=== PATIENT | female | born 1995 | race African-American/Black ===

== ENCOUNTER 2017-05-08 01:43 | Emergency (ER) | payer SELFPAY, OTHER ==
[2017-05-08] MEDS: FAMOTIDINE 20 MG TABLET. PO (02:34)
[2017-05-08] MEDS: DEXAMETHASONE SOD PHOS 4 MG/ML VIAL IM (02:34)
[2017-05-08] MEDS: diphenhydrAMINE HCL 25 MG CAPSULE PO (02:34)
== END 2017-05-08 02:57 | disposition home or self-care (01) ==
LOC: ER 01:43
DX: L50.0 Allergic urticaria (principal); E03.9 Hypothyroidism, unspecified
CPT/HCPCS: 96372; 99283-25; J1100; Q0163

== ENCOUNTER 2017-12-21 12:28 | Emergency (ER) | payer SELFPAY ==
[~2017-12-21] VITALS: Ht 172.7 cm; Wt 72.6 kg
[~2017-12-21 12:28] MED LIST: Mirena; PRED50TA PO
[2017-12-21 12:55] VITALS: BP 116/77
[2017-12-21] MEDS ORDERED: ALBUTEROL SULFATE 2.5 MG/3 ML NEBU. NEB ONE (13:30)
[2017-12-21] MEDS ORDERED: predniSONE 10 MG TABLET PO ONE (13:45)
[2017-12-21] MEDS ORDERED: IPRATRPIUM/ALBUTEROL 0.5/2.5MG 3 ML NEBU. NEB ONE (13:45)
[2017-12-21] MEDS ORDERED: AZIT250T PO (14:19)
[2017-12-21] MEDS ORDERED: PRED50TA PO (14:19)
[2017-12-21] MEDS ORDERED: ALBU8.5H8 IH (14:19)
--- NOTE | 2017-12-21 14:19 | PHYS DOC ---
Past Medical History Past Medical History: No Pertinent History, Hypothyroid Past Surgical History: No Surgical History Alcohol Use: None Drug Use: None Adult General Chief Complaint Chief Complaint: COUGH HPI HPI Patient is a 22 year old [f__sex] who presents with [] Review of Systems Review of Systems Constitutional: Denies fever or chills [] Eyes: Denies change in visual acuity, redness, or eye pain [] HENT: Denies nasal congestion or sore throat [] Respiratory: Denies cough or shortness of breath [] Cardiovascular: No additional information not addressed in HPI [] GI: Denies abdominal pain, nausea, vomiting, bloody stools or diarrhea [] : Denies dysuria or hematuria [] Musculoskeletal: Denies back pain or joint pain [] Integument: Denies rash or skin lesions [] Neurologic: Denies headache, focal weakness or sensory changes [] Endocrine: Denies polyuria or polydipsia [] All other systems were reviewed and found to be within normal limits, except as documented in this note. Current Medications Current Medications Current Medications Medications (Trade) Dose Ordered Sig/Lorena Start Time Stop Time Status Last Admin Dose Admin Albuterol Sulfate (Ventolin Neb Soln) 2.5 mg 1X ONCE 12/21/17 13:30 12/21/17 13:31 DC 12/21/17 13:35 2.5 MG Albuterol/ Ipratropium (Duoneb) 3 ml 1X ONCE 12/21/17 13:45 12/21/17 13:46 DC 12/21/17 13:52 3 ML Prednisone (Prednisone) 50 mg 1X ONCE 12/21/17 13:45 12/21/17 13:46 DC 12/21/17 13:49 50 MG Allergies Allergies Allergies Coded Allergies Type Severity Reaction Last Updated Verified No Known Drug Allergies 01/13/14 No Physical Exam Physical Exam Constitutional: Well developed, well nourished, no acute distress, non-toxic appearance. [] HENT: Normocephalic, atraumatic, bilateral external ears normal, oropharynx moist, no oral exudates, nose normal. [] Eyes: PERRLA, EOMI, conjunctiva normal, no discharge. [] Neck: Normal range of motion, no tenderness, supple, no stridor. [] Cardiovascular:Heart rate regular rhythm, no murmur [] Lungs & Thorax: Bilateral breath sounds clear to auscultation [] Abdomen: Bowel sounds normal, soft, no tenderness, no masses, no pulsatile masses. [] Skin: Warm, dry, no erythema, no rash. [] Back: No tenderness, no CVA tenderness. [] Extremities: No tenderness, no cyanosis, no clubbing, ROM intact, no edema. [] Neurologic: Alert and oriented X 3, normal motor function, normal sensory function, no focal deficits noted. [] Psychologic: Affect normal, judgement normal, mood normal. [] Current Patient Data Vital Signs Vital Signs Date Time Temp Pulse Resp B/P (MAP) Pulse Ox O2 Delivery O2 Flow Rate FiO2 12/21/17 13:49 97 Room Air 12/21/17 12:55 98.5 78 16 116/77 (90) 98.5 Lab Values Laboratory Tests Test 12/21/17 13:21 POC Urine HCG, Qualitative Hcg negative (Negative) EKG EKG [] Radiology/Procedures Radiology/Procedures [] Course & Med Decision Making Course & Med Decision Making Pertinent Labs and Imaging studies reviewed. (See chart for details) [] Dragon Disclaimer Dragon Disclaimer This electronic medical record was generated, in whole or in part, using a voice recognition dictation system. Departure Departure Impression: Primary Impression: Bronchitis Disposition: 01 HOME, SELF-CARE Condition: STABLE Referrals: NO PCP (PCP) Patient Instructions: Acute Bronchitis Additional Instructions: Take medications as directed. Follow-up with your primary care provider in one week for recheck or return to the emergency department if worsening. Scripts Albuterol Sulfate (Proair Hfa) 8.5 Gm Hfa.aer.ad 8.5 GM IH PRN QID PRN for SHORTNESS OF BREATH, #1 INHALER Prov: ANKUR POLLACK [employer] 12/21/17 Prednisone (PREDNISONE) 50 Mg Tablet 1 TAB PO DAILY, #5 TAB Prov: KATERYNAJESICAANKUR Yared [employer] 12/21/17 Azithromycin (ZITHROMAX) 250 Mg Tablet 1 PKG PO UD, #1 PKG Prov: ANKUR POLLACK Yared FARLEYN 12/21/17 ANKUR POLLACK Yared FARLEYN Dec 21, 2017 14:19
== END 2017-12-21 14:28 | disposition home or self-care (01) ==
LOC: ER 12:28
DX: J40 Bronchitis, not specified as acute or chronic (principal); E03.9 Hypothyroidism, unspecified
CPT/HCPCS: 81025; 94640; 94760; 99284; J7512; J7613; J7620